=== PATIENT | male | born 1965 | race Caucasian/White ===

== ENCOUNTER → 2020-06-03 | Outpatient (CLI) | payer BC ==
[2020-06-03 08:15] LABS: EOSINOPHILS % 1.8 % (0.0-5.0); LYMPHOCYTES % 27.7 % (20.0-50.0); MEAN CORPUSCULAR VOLUME 82.8 fL (80.0-94.0); MEAN PLATELET VOLUME 7.2 fl (7.4-10.4); MONOCYTES % 9.9 % (2.0-8.0); NEUTROPHILS % 59.6 % (40.0-76.0); PLATELET 212 x1000/uL (130-400); RED BLOOD CELL COUNT 4.83 mill/uL (4.7-6.1); RED CELL DISTRIBUTION WIDTH 13.5 % (11.6-14.6)
[2020-06-03 08:21] LABS: CHLORIDE 108 mEq/L (98-107)
[2020-06-03 08:29] LABS: LDL CHOLESTEROL 96 mg/dL (5-100)
[2020-06-03 08:31] LABS: HDL CHOLESTEROL 37 mg/dL (40-59); TOTAL IRON BINDING CAPACITY 284 ug/dL (250-450)
[2020-06-03 08:33] LABS: T4 FREE 0.82 ng/dL (0.76-1.46)
[2020-06-03 09:29] LABS: VITAMIN B12 SERUM 871 pg/mL (211-911)
[2020-06-03 09:41] LABS: FOLIC ACID (FOLATE) SERUM > 20.00 ng/mL (>5.38)
[2020-06-03 11:49] LABS: FERRITIN 330 ng/mL (22-322); PROSTRATE SPECIFIC AG TOTAL 0.31 ng/mL (0.0-4.0)
== END | disposition home or self-care (01) ==
LOC: LAB 07:40
PROVIDERS: ATTEND Family Medicine Adult Medicine
DX: Z00.00 Encounter for general adult medical examination without abnormal findings (principal); Z12.5 Encounter for screening for malignant neoplasm of prostate; D64.9 Anemia, unspecified
CPT/HCPCS: 36415; 80053; 80061; 82306; 82607; 82728; 82746; 83036; 83540; 83550; 84153; 84439; 84443; 84481; 85025; G0103

== ENCOUNTER → 2021-05-10 | Outpatient (CLI) | payer BC ==
[2021-05-10 08:56] LABS: CHLORIDE 108 mEq/L (98-107)
[2021-05-10 09:03] LABS: LDL CHOLESTEROL 78 mg/dL (5-100)
[2021-05-10 09:04] LABS: HDL CHOLESTEROL 46 mg/dL (40-59)
[2021-05-10 10:27] LABS: PROSTRATE SPECIFIC AG TOTAL 0.33 ng/mL (0.0-4.0)
== END | disposition home or self-care (01) ==
LOC: LAB 08:01
PROVIDERS: ATTEND Specialist
DX: I10 Essential (primary) hypertension (principal); E66.9 Obesity, unspecified; E78.5 Hyperlipidemia, unspecified
CPT/HCPCS: 36415; 80053; 80061; 82306; 82607; 83036; 84153; G0103

== ENCOUNTER → 2022-05-23 | Day surgery (SDC) | payer BC ==
[2022-05-23 08:34] LABS: BASOPHILS % 0.8 % (0.0-2.0); EOSINOPHILS % 2.8 % (0.0-5.0); HEMATOCRIT. 42.5 % (42.0-52.0); HEMOGLOBIN. 14.8 g/dL (14.0-18.0); LYMPHOCYTES % 27.2 % (20.0-50.0); MEAN CORPUSCULAR HEMOGLOBIN 28.7 pg (28.0-32.0); MEAN CORPUSCULAR VOLUME 82.1 fL (80.0-94.0); MEAN PLATELET VOLUME 7.2 fl (7.4-10.4); MONOCYTES % 10.1 % (2.0-8.0); NEUTROPHILS % 59.1 % (40.0-76.0); PLATELET 229 x1000/uL (130-400); RED BLOOD CELL COUNT 5.18 mill/uL (4.7-6.1); RED CELL DISTRIBUTION WIDTH 13.2 % (11.6-14.6)
[2022-05-23 08:45] LABS: CHLORIDE 106 mEq/L (98-107)
[2022-05-23 09:02] LABS: HDL CHOLESTEROL 48 mg/dL (40-59); LDL CHOLESTEROL 77 mg/dL (5-100)
== END | disposition home or self-care (01) ==
LOC: LAB 07:56
DX: E78.5 Hyperlipidemia, unspecified (principal); I10 Essential (primary) hypertension; Z79.899 Other long term (current) drug therapy
CPT/HCPCS: 36415; 80053; 80061; 83036; 84443; 85025

== ENCOUNTER → 2023-10-04 | Outpatient (CLI) | payer BC ==
[2023-10-04 08:13] LABS: EOSINOPHILS % 2.3 % (0.0-5.0); HEMATOCRIT. 40.9 % (42.0-52.0); LYMPHOCYTES % 29.8 % (20.0-50.0); MEAN CORPUSCULAR HEMOGLOBIN 28.3 pg (28.0-32.0); MEAN CORPUSCULAR HGB CONC 34.3 g/dL (31.0-37.0); MEAN CORPUSCULAR VOLUME 82.5 fL (80.0-94.0); MEAN PLATELET VOLUME 7.3 fl (7.4-10.4); MONOCYTES % 8.6 % (2.0-8.0); NEUTROPHILS % 58.3 % (40.0-76.0); PLATELET 225 x1000/uL (130-400); RED BLOOD CELL COUNT 4.96 mill/uL (4.7-6.1); RED CELL DISTRIBUTION WIDTH 12.8 % (11.6-14.6); WHITE BLOOD COUNT 6.5 x1000/uL (4.5-11.0)
[2023-10-04 08:22] LABS: CHLORIDE 106 mEq/L (98-107); POTASSIUM 4.3 mEq/L (3.5-5.1); SODIUM 139 mEq/L (136-145)
[2023-10-04 08:23] LABS: CALCIUM 8.9 mg/dL (8.7-10.4); CARBON DIOXIDE 28 mEq/L (21-32)
[2023-10-04 08:28] LABS: CREATININE 1.3 mg/dL (0.6-1.3); GLUCOSE 113 mg/dL (70-105); TRIGLYCERIDE 342 mg/dL (0-150); UREA NITROGEN BLOOD 20 mg/dL (9-23)
[2023-10-04 08:29] LABS: LDL CHOLESTEROL 55 mg/dL (5-100)
[2023-10-04 08:30] LABS: ALANINE AMINOTRANSFERASE 40 IU/L (10-49); ALBUMIN 4.4 g/dL (3.2-4.8); ASPARTATE AMINOTRANSFERASE 28 IU/L (<34); BILIRUBIN TOTAL 0.9 mg/dL (0.1-1.0); CHOLESTEROL 147 mg/dL (<200); HDL CHOLESTEROL 33 mg/dL (>55); PROTEIN TOTAL 7.3 g/dL (6.0-8.3)
[2023-10-04 08:32] LABS: T4 FREE 0.82 ng/dL (0.89-1.76)
[2023-10-04 08:33] LABS: THYROID STIMULATING HORMONE 2.94 uIU/mL (0.55-4.78)
[2023-10-04 08:42] LABS: VITAMIN B12 SERUM 1066 pg/mL (211-911)
[2023-10-05 08:09] LABS: *T3 UPTAKE 29 % (24-39)
== END | disposition home or self-care (01) ==
LOC: LAB 07:47
PROVIDERS: ATTEND Family Medicine Adult Medicine
DX: Z00.00 Encounter for general adult medical examination without abnormal findings (principal); I10 Essential (primary) hypertension; E66.9 Obesity, unspecified
CPT/HCPCS: 36415; 80053; 80061; 82607; 83036; 84439; 84443; 84479; 85025

== ENCOUNTER → 2024-02-07 | Outpatient (CLI) | payer BC ==
[2024-02-07 08:09] LABS: CARBON DIOXIDE 26 mEq/L (21-32); CHLORIDE 105 mEq/L (98-107); POTASSIUM 4.3 mEq/L (3.5-5.1); SODIUM 140 mEq/L (136-145)
[2024-02-07 08:10] LABS: CALCIUM 9.1 mg/dL (8.7-10.4)
[2024-02-07 08:15] LABS: CREATININE 1.2 mg/dL (0.6-1.3); GLUCOSE 111 mg/dL (70-105); TRIGLYCERIDE 172 mg/dL (0-150); UREA NITROGEN BLOOD 22 mg/dL (9-23)
[2024-02-07 08:16] LABS: ALANINE AMINOTRANSFERASE 36 IU/L (10-49); LDL CHOLESTEROL 63 mg/dL (5-100)
[2024-02-07 08:17] LABS: ALBUMIN 4.2 g/dL (3.2-4.8); ASPARTATE AMINOTRANSFERASE 31 IU/L (<34); BILIRUBIN DIRECT 0.2 mg/dL (<=3.0); CHOLESTEROL 143 mg/dL (<200); HDL CHOLESTEROL 37 mg/dL (>55); PROTEIN TOTAL 7.4 g/dL (6.0-8.3)
== END | disposition home or self-care (01) ==
LOC: LAB 07:36
PROVIDERS: ATTEND Family Medicine Adult Medicine
DX: I10 Essential (primary) hypertension (principal); E78.5 Hyperlipidemia, unspecified
CPT/HCPCS: 36415; 80053; 80061; 80076

== ENCOUNTER → 2025-03-03 | Outpatient (CLI) | payer BC ==
[2025-03-03 08:35] LABS: BASOPHILS % 0.9 % (0.0-2.0); EOSINOPHILS % 1.7 % (0.0-5.0); HEMATOCRIT. 42.1 % (42.0-52.0); HEMOGLOBIN. 14.7 g/dL (14.0-18.0); LYMPHOCYTES % 24.5 % (20.0-50.0); MEAN PLATELET VOLUME 7.3 fl (7.4-10.4); MONOCYTES % 7.5 % (2.0-8.0); NEUTROPHILS % 65.4 % (40.0-76.0); PLATELET 221 x1000/uL (130-400); RED BLOOD CELL COUNT 5.07 mill/uL (4.7-6.1); RED CELL DISTRIBUTION WIDTH 13.0 % (11.6-14.6)
[2025-03-03 08:54] LABS: CREATININE 1.3 mg/dL (0.6-1.3)
[2025-03-03 08:55] LABS: LDL CHOLESTEROL 56 mg/dL (5-100); PROTEIN TOTAL 7.2 g/dL (6.0-8.3); TRIGLYCERIDE 255 mg/dL (0-150); UREA NITROGEN BLOOD 16 mg/dL (9-23)
[2025-03-03 08:56] LABS: ASPARTATE AMINOTRANSFERASE 40 IU/L (<34)
[2025-03-03 08:57] LABS: BILIRUBIN TOTAL 0.9 mg/dL (0.1-1.0)
[2025-03-03 08:58] LABS: T4 FREE 1.08 ng/dL (0.89-1.76)
[2025-03-03 09:41] LABS: ERYTHROCYTE SEDIMENTATION RATE 2 mm/hr (0-20)
[2025-03-04 04:07] LABS: *T3 UPTAKE 28 % (24-39); PROSTATE SPECIFIC AG TOTAL 0.4 ng/mL (0.0-4.0)
== END | disposition home or self-care (01) ==
LOC: LAB 07:39
PROVIDERS: ATTEND Specialist
DX: I10 Essential (primary) hypertension (principal); E78.5 Hyperlipidemia, unspecified; Z00.00 Encounter for general adult medical examination without abnormal findings
CPT/HCPCS: 36415; 80053; 80061; 83540; 84153; 84439; 84443; 84479; 85025; 85651